=== PATIENT | male | born 1950 | race Caucasian/White ===

== ENCOUNTER 2016-10-01 13:11 | Emergency (ER) | payer MEDICAID ==
[~2016-10-01] VITALS: Ht 177.8 cm; Wt 143.8 kg
[~2016-10-01 13:11] MED LIST: ALBU2.5V NPPB; ALBU90AE INH; ATOR10TA9 PO; CEFD300C2 PO; FURO-92 PO; LORA-445 PO; POTA20TA14 PO; PRED5TAB PO; SULF15DR5 EACHEYE
[2016-10-01] MEDS ORDERED: SODIUM CHLORIDE FLUSH 10ML SYR IVF ONE (14:00)
[2016-10-01 14:41] LABS: BLOOD UREA NITROGEN 14 mg/dL (7-18)
[2016-10-01 14:48] LABS: ASPARTATE AMINO TRANSFERASE 29 U/L (15-37)
[2016-10-01 14:49] LABS: IS PT STATUS REG ER OR PRE ER? YES
[2016-10-01 15:07] LABS: ANISOCYTOSIS 2+
[2016-10-01 15:08] VITALS: BP 147/78
[2016-10-01 15:08] LABS: TARGET CELLS 1+
[2016-10-01] MEDS ORDERED: IBUPROFEN 200 MG TABLET ONE (15:30)
[2016-10-01] MEDS ORDERED: FUROSEMIDE 40 MG TABLET PO ONE (16:30)
== END 2016-10-01 17:43 | disposition home or self-care (01) ==
LOC: ED 13:48
DX: R60.0 Localized edema (principal); M54.5 Low back pain; I50.9 Heart failure, unspecified; I25.2 Old myocardial infarction; J44.9 Chronic obstructive pulmonary disease, unspecified; E66.01 Morbid (severe) obesity due to excess calories; Z87.891 Personal history of nicotine dependence; Z99.81 Dependence on supplemental oxygen; Z68.42 Body mass index [BMI] 45.0-49.9, adult
CPT/HCPCS: 36415; 71010; 80053; 83880; 84484; 85025; 93005

== ENCOUNTER → 2017-07-12 | Outpatient (CLI) | payer MEDICAID, MEDICARE ==
[~2017-07-12] MED LIST changes: -CEFD300C2 PO; +CEFD300C37 PO
== END | disposition home or self-care (01) ==
LOC: CFH 15:00
PROVIDERS: ATTEND Internal Medicine Critical Care Medicine
DX: R06.02 Shortness of breath (principal)
CPT/HCPCS: 71250

== ENCOUNTER → 2017-11-10 | Outpatient (CLI) | payer MEDICARE ==
[~2017-11-10] MED LIST changes: +REGADENOSON 0.4 MG/5 ML SYRINGE ONE
== END | disposition home or self-care (01) ==
LOC: RAD 10:32
PROVIDERS: ATTEND Internal Medicine Cardiovascular Disease
DX: I11.0 Hypertensive heart disease with heart failure (principal); I50.9 Heart failure, unspecified; I25.2 Old myocardial infarction; E11.9 Type 2 diabetes mellitus without complications
CPT/HCPCS: 78452; 93017; 93306; A9502; J2785

== ENCOUNTER 2019-12-03 11:25 | Emergency (ER) | payer MEDICARE ==
[~2019-12-03] VITALS: Ht 172.7 cm; Wt 127.4 kg
[~2019-12-03 11:25] MED LIST changes: -REGADENOSON 0.4 MG/5 ML SYRINGE ONE
--- NOTE | 2019-12-03 11:42 | NUR ---
BIB EMS FOR ABNORMAL LABS. PT WAS SENT FROM AND WAS TOLD HE HAS A "HIGH HEMOGLOBIN LEVEL". EMS REPORTED THAT PT WAS 61% ON RM AIR AT FIRST AND RECEIVED DUO NEB AND ALBUTEROL CABINET FINISHER AND WAS ONLY ABLE TO GET PT TO 88% ON 6 LITERS. PT IS RESTING IN GURNEY ON 2 LITERS AND IS 93%.
[2019-12-03 13:13] LABS: ALBUMIN 3.1 g/dL (3.4-5.0); ANION GAP 4 mmol/L (5-15); CALCIUM 9.8 mg/dL (8.5-10.1); CHLORIDE 104 mmol/L (98-107)
[2019-12-03 13:17] LABS: ALANINE AMINOTRANSFERASE 26 U/L (12-78); ALKALINE PHOSPHATASE 66 U/L (45-117); BILIRUBIN,TOTAL 0.6 mg/dL (0.2-1.0); TOTAL PROTEIN 7.6 g/dL (6.4-8.2)
[2019-12-03 13:43] LABS: MEAN CORPUSCULAR HEMOGLOBIN 25.8 pg (27.5-34.5); MEAN CORPUSCULAR HGB CONC 30.8 g/dL (33.2-36.2); MEAN PLATELET VOLUME 9.7 fL (7.4-10.4); PLATELET COUNT 162 x10^3/uL (130-400); RED BLOOD COUNT 8.07 x10^6/uL (4.38-5.82); RED CELL DISTRIBUTION WIDTH 22.3 % (9.4-14.8)
--- NOTE | 2019-12-03 13:45 | NUR ---
US IN WITH PT AT THIS TIME
[2019-12-03 13:55] LABS: BASOPHILS # (AUTO) 0.03 x10^3/uL (0-0.1); BASOPHILS % (AUTO) 0 % (0-1); EOSINOPHILS # (AUTO) 0.06 x10^3/uL (0-0.4); EOSINOPHILS % (AUTO) 1 % (1-7); LYMPHOCYTES # (AUTO) 1.06 x10^3/uL (1-3.4); LYMPHOCYTES % (AUTO) 12 % (22-44); MD SCAN; MONOCYTES # (AUTO) 1.34 x10^3/uL (0.2-0.8); MONOCYTES % (AUTO) 15 % (2-9); NEUTROPHILS # (AUTO) 6.27 x10^3/uL (1.8-6.8); NEUTROPHILS % (AUTO) 71 % (42-75)
[2019-12-03 14:58] VITALS: BP 138/77
--- NOTE | 2019-12-03 14:58 | NUR ---
PT EDUCATED ON PLAN OF CARE
== END 2019-12-03 15:55 | disposition home or self-care (01) ==
LOC: ED 15:30
DX: D75.1 Secondary polycythemia (principal); R00.0 Tachycardia, unspecified; M79.89 Other specified soft tissue disorders; I11.0 Hypertensive heart disease with heart failure; I50.9 Heart failure, unspecified; E11.9 Type 2 diabetes mellitus without complications; E78.5 Hyperlipidemia, unspecified; E66.01 Morbid (severe) obesity due to excess calories; Z68.41 Body mass index [BMI] 40.0-44.9, adult; Z87.891 Personal history of nicotine dependence
CPT/HCPCS: 36415; 80053; 82728; 83540; 83550; 83880; 85025; 93970; 99195; 99284